=== PATIENT | female | born 1975 | race Caucasian/White ===

== ENCOUNTER 2017-11-13 13:40 | Emergency (ER) | payer MEDICARE, OTHER ==
[2017-11-13 14:09] VITALS: BP 99/67
--- NOTE | 2017-11-20 01:55 | UC ---
CUONG General HPI - HPI Summary HPI Summary: [facility] seeking a bridge rx of ativan--as she has been on one tab qs for 14 years--she recently moved from [facility] and did not reslize she could not get refills in [facility] with an RX written in [place] - History of Current Complaint Chief Complaint: UCMedRefill Stated Complaint: REFILL RX Time Seen by Provider: 11/13/17 13:59 Hx Obtained From: Patient Hx Last Menstrual Period: does not get period due to past radiation tx Onset/Duration: Gradual Onset Onset Severity: Moderate Current Severity: Moderate Pain Intensity: 0 - Allergy/Home Medications Allergies/Adverse Reactions: Allergies Allergy/AdvReac Type Severity Reaction Status Date / Time shellfish derived Allergy Hives Verified 11/13/17 13:57 zinc Allergy Swelling Verified 11/13/17 13:55 Of Face,Lips,& Throat aspirin AdvReac Vomiting Verified 11/13/17 13:57 fentanyl AdvReac See Comment Verified 11/13/17 13:56 Home Medications: Home Medications Cyclobenzaprine TAB* [Flexeril 10 MG TAB*] 10 mg PO DAILY PRN 11/13/17 [History Confirmed 11/13/17] LORazepam [Ativan 1 MG TAB] 1 mg PO DAILY 11/13/17 [History Confirmed 11/13/17] Propranolol TAB* [Inderal TAB*] 10 mg PO DAILY PRN 11/13/17 [History Confirmed 11/13/17] PMH/Surg Hx/FS Hx/Imm Hx Previously Healthy: No Psychological History: Anxiety, Other Other Psychological History: pnea Cancer History: Other Other Cancer History: brain - Surgical History Surgical History: Yes Surgery Procedure, Year, and Place: brainstem tumor removal 2003 - Family History Known Family History: Positive: None - Social History Occupation: Disabled Lives: Alone Alcohol Use: None Substance Use Type: None Smoking Status (MU): Light Every Day Tobacco Smoker Amount Used/How Often: 3 cloves/ day Review of Systems Constitutional: Negative Skin: Negative Eyes: Negative ENT: Negative Respiratory: Negative Cardiovascular: Negative Gastrointestinal: Negative Genitourinary: Negative Motor: Negative Neurovascular: Negative Musculoskeletal: Negative Neurological: Negative Psychological: Negative Is Patient Immunocompromised?: No All Other Systems Reviewed And Are Negative: Yes Physical Exam Triage Information Reviewed: Yes Appearance: No Pain Distress, Ill-Appearing - chronic illness, Thin Vital Signs: Initial Vital Signs Temp 98.1 F 11/13/17 14:00 Pulse 94 11/13/17 14:00 Resp 16 11/13/17 14:00 BP 99/67 11/13/17 14:00 Pulse Ox 98 11/13/17 14:00 Vital Signs Reviewed: Yes Eye Exam: Normal Eyes: Positive: Conjunctiva Clear ENT Exam: Normal ENT: Positive: Normal ENT inspection, Hearing grossly normal, Pharynx normal. Negative: Trismus, Muffled voice, Hoarse voice Dental Exam: Normal Neck exam: Normal Neck: Positive: Supple, Nontender Respiratory Exam: Normal Respiratory: Positive: Chest non-tender, Lungs clear, Normal breath sounds, No respiratory distress, No accessory muscle use Cardiovascular Exam: Normal Cardiovascular: Positive: RRR, No Murmur, Pulses Normal, Brisk Capillary Refill Musculoskeletal Exam: Normal Musculoskeletal: Positive: Strength Intact, ROM Intact, No Edema Neurological Exam: Normal Neurological: Positive: Alert, Muscle Tone Normal Psychological Exam: Normal Skin Exam: Normal Course/Dx - Course Course Of Treatment: bridge script written referral and support information provided - Differential Dx - Multi-Symptom Provider Diagnoses: Ativan bridge refill, Discharge - Sign-Out/Discharge Documenting (check all that apply): Patient Departure - Discharge Plan Condition: Stable Disposition: HOME Prescriptions: LORazepam TAB(*) [Ativan 0.5 MG TAB (*)] 0.5 mg PO BEDTIME #14 tab MDD 1 Referrals: [facility] [Outside] - 2 Days Additional Instructions: "We will meet you where you are..." REACH [employer] for a CANNABIS PROVIDER - Billing Disposition and Condition Condition: STABLE Disposition: Home
== END 2017-11-13 14:45 | disposition home or self-care (01) ==
LOC: UCEAST 13:40
DX: F41.9 Anxiety disorder, unspecified (principal); Z85.841 Personal history of malignant neoplasm of brain; Z88.6 Allergy status to analgesic agent; Z88.5 Allergy status to narcotic agent; Z91.013 Allergy to seafood; F17.290 Nicotine dependence, other tobacco product, uncomplicated
CPT/HCPCS: 99202; G0463

== ENCOUNTER 2018-01-28 17:17 | Observation (INO) | payer MEDICARE, OTHER ==
[2018-01-28 17:47] LABS: ABS Basophils 0.1 10^3/ul (0-0.2); ABS Eosinophils 0.2 10^3/ul (0-0.6); ABS Lymphocytes 2.4 10^3/ul (1.0-4.8); ABS Monocytes 0.5 10^3/ul (0-0.8); ABS Neutrophils 4.4 10^3/ul (1.5-7.7); ABS Nucleated RBC 0 10^3/ul; Eosinophil % 2.7 % (0-6); Hematocrit 39 % (35-47); Hemoglobin 13.4 g/dl (12.0-16.0); Lymphocyte % 31.7 % (25-47); Mean Corpuscular HGB Conc 34 g/dl (31-36); Mean Corpuscular Hemoglobin 31 pg (27-31); Mean Corpuscular Volume 92 fL (80-97); Mean Platelet Volume 6.6 um3 (7.4-10.4); Nucleated Red Blood Cells % 0; Platelet Count 227 10^3/ul (150-450); Red Blood Count 4.28 10^6/ul (4.00-5.40); Red Cell Distribution Width 13 % (10.5-15); White Blood Count 7.6 10^3/ul (3.5-10.8)
--- NOTE | 2018-01-28 17:52 | ED ---
Neurological HPI - HPI Summary HPI Summary: This patient is a 42 year old F presenting to [facility] accompanied by her neighbors with a chief complaint of FND since about 1700. Pt denies PMHx anxiety or panic disorder, and denies anxiety now. Pt went to her neighbors and asked to be brought to the ED; she was unable to ambulate to their car on her own. She endorses aphasia, heavy shaking, left-sided hemiparesis and numbness. Her neighbors endorse that her baseline is normal and functional regarding both motor and sensory abilities, except for occasional ambulation with a cane. PMHx hypotension, denies PMHx DM, CVA. Pt endorses smoking cigarettes and marijuana. Code gomez called 1730. PMHx brainstem tumor medulloblastoma removed in 2003. - History of Current Complaint Chief Complaint: EDAltMentalStatus Stated Complaint: WEAKNESS Time Seen by Provider: 01/28/18 17:33 Hx Obtained From: Patient Hx Last Menstrual Period: does not get period due to past radiation tx Onset/Duration: Sudden Onset, Started minutes ago, Still Present Timing: Constant Onset Severity: Moderate Current Severity: Moderate Neurological Deficit Location: Generalized - aphasia, LUE - motor weakness Pain Intensity: 0 Pain Scale Used: 0-10 Numeric Character: Motor Weakness, Impaired Speech Aggravating: Unknown Alleviating: Nothing Associated Signs and Symptoms: Positive: Unsteady Gait, Weakness, Impaired Speech, Trauma: Remote - medulloblastoma removal in 2003. Negative: Fever, Anxiety - Allergy/Home Medications Allergies/Adverse Reactions: Allergies Allergy/AdvReac Type Severity Reaction Status Date / Time shellfish derived Allergy Hives Verified 11/13/17 13:57 zinc Allergy Swelling Verified 11/13/17 13:55 Of Face,Lips,& Throat aspirin AdvReac Vomiting Verified 11/13/17 13:57 fentanyl AdvReac See Comment Verified 11/13/17 13:56 PMH/Surg Hx/FS Hx/Imm Hx Endocrine/Hematology History: Denies: Hx Diabetes, Hx Sickle Cell Disease Cardiovascular History: Reports: Hx Hypotension Respiratory History: Denies: Hx Lung Cancer GI History: Denies: Hx Ileostomy History: Denies: Hx Dialysis Sensory History: Reports: Hx Contacts or Glasses Denies: Hx Deafness Opthamlomology History: Reports: Hx Contacts or Glasses EENT History: Denies: Hx Deafness Neurological History: Denies: Hx CVA - Cancer History Cancer Type, Location and Year: brainstem tumor; 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 - Surgical History Surgery Procedure, Year, and Place: brainstem tumor removal 2003 Infectious Disease History: No Infectious Disease History: Reports: Hx [place] Denies: Traveled Outside the [place] in Last 30 Days - Family History Known Family History: Negative: Blood Disorder - Social History Lives: Alone Alcohol Use: None Substance Use Type: Reports: None Smoking Status (MU): Light Every Day Tobacco Smoker Amount Used/How Often: 3 cloves/ day Review of Systems Positive: Other - Heavily shaking. Negative: Fever Positive: no symptoms reported Positive: Decreased ROM - L arm Positive: Weakness - L arm, Numbness - L arm, Slurred Speech - aphasia All Other Systems Reviewed And Are Negative: Yes Physical Exam - Summary Physical Exam Summary: Appearance: Well appearing, no pain distress Skin: warm, dry, reflects adequate perfusion Head/face: normal Eyes: EOMI, JESSICA ENT: normal Neck: supple, non-tender Respiratory: CTA, breath sounds present Cardiovascular: RRR, pulses symmetrical Abdomen: non-tender, soft Bowel: present Musculoskeletal: normal, strength/ROM intact Neuro:, A&Ox3, NIH = 3: effort against gravity left arm, some aphasia Triage Information Reviewed: Yes Vital Signs On Initial Exam: Initial Vitals Temp Pulse Resp BP Pulse Ox 97.9 F 102 20 117/75 100 01/28/18 17:21 01/28/18 17:21 01/28/18 17:21 01/28/18 17:21 01/28/18 17:21 Vital Signs Reviewed: Yes - Lucila Coma Scale Best Eye Response: 4 - Spontaneous Best Motor Response: 6 - Obeys Commands Best Verbal Response: 5 - Oriented Coma Scale Total: 15 Diagnostics - Vital Signs Vital Signs Temp Pulse Resp BP Pulse Ox 01/28/18 17:21 97.9 F 102 20 117/75 100 - Laboratory Result Diagrams: 01/28/18 17:40 01/28/18 17:40 Lab Statement: Any lab studies that have been ordered have been reviewed, and results considered in the medical decision making process. - Radiology CXR Xray Interpretation: No Acute Changes Radiology Interpretation Completed By: ED Physician - LAITH. Pending official imaging report. - CT Brain CT Interpretation Completed By: Radiologist - Postsurgical change of previous occipital craniotomy. Postsurgical defect in the cerebellar vermis which communicates with the fourth ventricle. Mild volume loss at the cerebellum. No evidence for intracranial hemorrhage or CT findings to indicate acute or subacute ischemic stroke. No acute intracranial process evident. Results discussed with Dr. Riley 01/28/2018 5:47 PM EDT CTA head CT Interpretation: No Acute Changes CT Interpretation Completed By: Radiologist - 1. No evidence of hemodynamically significant stenosis. 2. Left posterior thyroid enhancement is nonspecific, possibly artifactual. Clinical correlation recommended. 3. No evidence of hemodynamically significant stenosis. Dr. Riley has reviewed this report. - EKG 1742 Cardiac Rate: NL - 82 EKG Rhythm: Sinus Rhythm ST Segment: Normal Ectopy: None EKG Interpretation: No acute changes. NIH Scale - NIH Scale Level of Consciousness: Alert/Keenly Responsive Ask Patient the Month and His/Her Age: Both Correct Ask Pt to Open/Close Eyes and Er Registrar/Release Non-Paretic Hand: Both Correctly Best Gaze (Only Horizontal Eye Movement): Normal Visual Field Testing: No Visual Loss Facial Paresis-Pt to Smile & Close Eyes or Grimace Symmetry: Normal/Symmetrical Motor Function - Right Arm: No Drift-Holds 10 Seconds Motor Function - Left Arm: Effort Against Martin Motor Function - Right Leg: No Drift-Holds 10 Seconds Motor Function - Left Leg: No Drift-Holds 10 Seconds Limb Ataxia-Must be out of Proportion to Weakness Present: Absent Sensory (Use Pinprick to Test Arms/Legs/Trunk/Face): Normal Best Language (Describe Picture, Name Items): Some Loss Dysarthria (Read Several Words): Normal Extinction and Inattention: No Abnormality Total Score: 3 Re-Evaluation - Re-Evaluation First Eval Re-Evaluation Time: 19:38 Change: Improved Comment: Pt feels much better, and if given the option to stay for observation or to go home she would prefer to go home. Course/Dx - Course Course Of Treatment: Code Gomez called 1730. A 42-year-old F presents to the ED with a CC of FND since at least 1700. (+) aphasia, motor weakness L, numbness L , shaking. (-) anxiety. PMHx medulloblastoma/SHx its removal from her brainstem , and PMHx hypotension. Denies PMHx CVA, DM, anxiety, panic disorder. A CXR was (-). An EKG reveals NSR at 82 BPM with no acute changes. In the ED course, pt was given contrast and nl saline. A CT brain revealed postsurgical change of previous occipital craniotomy. Postsurgical defect in the cerebellar vermis which communicates with the fourth ventricle. Mild volume loss at the cerebellum. No evidence for intracranial hemorrhage or CT findings to indicate acute or subacute ischemic stroke. No acute intracranial process evident. Results discussed with Dr. Riley 01/28/2018 5:47 PM EDT. A CTA head reveals 1. No evidence of hemodynamically significant stenosis. 2. Left posterior thyroid enhancement is nonspecific, possibly artifactual. Clinical correlation recommended. 3. No evidence of hemodynamically significant stenosis. - Differential Dx Differential Diagnoses Neuro: Positive: Cerebrovascular Accident, Intracranial Bleed, Metabolic Abnormality, Transient Ischemic Attack - Diagnoses Provider Diagnoses: CVA (cerebral vascular accident) During the Visit The Following Alert/Code Occurred: Code Gomez - 1730 - Physician Notifications Discussed Care Of Patient With: Eliecer Rivera Time Discussed With Above Provider: 17:52 Instructed by Provider To: Other - Pt is not a TPA canditate because of brain tumor resection. Recommends CTA. - Critical Care Time Critical Care Time: 75-104 min - 30 Discharge - Sign-Out/Discharge Documenting (check all that apply): Patient Departure - admit - Discharge Plan Condition: Fair Disposition: ADMITTED TO [facility] - Billing Disposition and Condition Condition: FAIR Disposition: Admitted to [facility] - Attestation Statements Document Initiated by Savannahibe: Yes Documenting Scribe: Gary Puente Provider For Whom Scribe is Documenting (Include Credential): Dr. Isak Riley MD Scribe Attestation: Gary Rose scribed for Dr. Isak Riley MD on 01/28/18 at 2131. Scribe Documentation Reviewed: Yes Provider Attestation: The documentation as recorded by the Gary marshall accurately reflects the service I personally performed and the decisions made by me, Dr. Isak Riley MD Consult Consult: 1958 Dr. Smith: Accepts admission.
--- NOTE | 2018-01-28 17:52 | RAD ---
Indication: History of medulloblastoma in approximate 2003. LEFT arm weakness and slurred speech. Code kern. Comparison: No relevant prior exams available on the [facility] for comparison. Technique: Noncontrast CT vertex of skull through foramen magnum. Report: Postsurgical change of previous occipital craniotomy. Postsurgical defect in the cerebellar vermis which communicates with the fourth ventricle. Mild volume loss at the cerebellum. Negative for kern matter white matter obscuration, intra or extra-axial hemorrhage, or mass effect. Unremarkable cerebral sulci and ventricles. Patent basal cisterns. Unremarkable orbital contents. No calvarial fracture or suspicious focal osseous lesion evident. Unremarkable scalp. Opacification on the LEFT sphenoid sinus. The remaining visualized paranasal sinuses and mastoid air spaces are clear. IMPRESSION: #. Postsurgical change of previous occipital craniotomy. Postsurgical defect in the cerebellar vermis which communicates with the fourth ventricle. Mild volume loss at the cerebellum. #. No evidence for intracranial hemorrhage or CT findings to indicate acute or subacute ischemic stroke. No acute intracranial process evident. #. Results discussed with Dr. Riley 01/28/2018 5:47 PM EDT
[2018-01-28 18:01] LABS: INR 0.94 (0.77-1.02)
[2018-01-28 18:05] LABS: EGFR Non-African American 88.4 (>60)
[2018-01-28] MEDS ORDERED: Iohexol 350* (CONTRAST) 500 ML MDV IV ONE (18:11)
--- NOTE | 2018-01-28 19:53 | RAD ---
EXAM: CT Angiography Head With Intravenous Contrast CLINICAL HISTORY: 42 years old, female; Signs and symptoms; Drowsiness or somnolence; Prior surgery; Surgery date: 6+ months; Additional info: CVA TECHNIQUE: Axial computed tomographic angiography images of the head with intravenous contrast using CT angiography protocol. All CT scans at this facility use at least one of these dose optimization techniques: automated exposure control; mA and/or kV adjustment per patient size (includes targeted exams where dose is matched to clinical indication); or iterative reconstruction. 3D and MIP reconstructed images were created and reviewed. Coronal and sagittal reformatted images were created and reviewed. CONTRAST: 80 mL of OMNI 350 administered intravenously. COMPARISON: No relevant prior studies available. FINDINGS: Artifacts: Left posterior thyroid enhancement is nonspecific, possibly artifactual. Clinical correlation recommended. Right internal carotid artery: No acute findings. Intracranial segment is patent with no significant stenosis. No aneurysm. Right anterior cerebral artery: Unremarkable. No occlusion or significant stenosis. No aneurysm. Right middle cerebral artery: Unremarkable. No occlusion or significant stenosis. No aneurysm. Right posterior cerebral artery: Unremarkable. No occlusion or significant stenosis. No aneurysm. Right vertebral artery: Unremarkable as visualized. Left internal carotid artery: No acute findings. Intracranial segment is patent with no significant stenosis. No aneurysm. Left anterior cerebral artery: Unremarkable. No occlusion or significant stenosis. No aneurysm. Left middle cerebral artery: Unremarkable. No occlusion or significant stenosis. No aneurysm. Left posterior cerebral artery: Unremarkable. No occlusion or significant stenosis. No aneurysm. Left vertebral artery: Unremarkable as visualized. Basilar artery: Unremarkable. No occlusion or significant stenosis. No aneurysm. Bones/joints: Suboccipital cranial metallic plates with left cerebellar resection/postsurgical change. IMPRESSION: 1. No evidence of hemodynamically significant stenosis. 2. Left posterior thyroid enhancement is nonspecific, possibly artifactual. Clinical correlation recommended. EXAM: CT Angiography Neck With Intravenous Contrast CLINICAL HISTORY: 42 years old, female; Signs and symptoms; Drowsiness or somnolence; Prior surgery; Surgery date: 6+ months; Additional info: CVA TECHNIQUE: Axial computed tomographic angiography images of the neck with intravenous contrast using CT angiography protocol. All CT scans at this facility use at least one of these dose optimization techniques: automated exposure control; mA and/or kV adjustment per patient size (includes targeted exams where dose is matched to clinical indication); or iterative reconstruction. 3D and MIP reconstructed images were created and reviewed. Coronal and sagittal reformatted images were created and reviewed. CONTRAST: 80 mL of OMNI 350 administered intravenously. 80 mL of OMNI 350 administered intravenously. COMPARISON: No relevant prior studies available. FINDINGS: VASCULATURE: Right common carotid artery: Unremarkable. No significant stenosis. No dissection or occlusion. Right internal carotid artery: Right internal carotid artery tortuosity. Extracranial segment is patent with no significant stenosis. No dissection or occlusion. Right external carotid artery: Unremarkable. No occlusion. Right vertebral artery: Unremarkable. No significant stenosis. No dissection or occlusion. Left common carotid artery: Unremarkable. No significant stenosis. No dissection or occlusion. Left internal carotid artery: Unremarkable. Extracranial segment is patent with no significant stenosis. No dissection or occlusion. Left external carotid artery: Unremarkable. No occlusion. Left vertebral artery: Unremarkable. No significant stenosis. No dissection or occlusion. NECK: Bones/joints: No acute fracture. No dislocation. Soft tissues: Unremarkable as visualized. No mass. CAROTID STENOSIS REFERENCE USING NASCET CRITERIA: % ICA stenosis = (1 - narrowest ICA diameter/diameter of distal cervical ICA) x 100. Mild - <50% stenosis. Moderate - 50-69% stenosis. Severe - 70-94% stenosis. Near occlusion - 95-99% stenosis. Occluded - 100% stenosis. IMPRESSION: No evidence of hemodynamically significant stenosis.
[2018-01-28] MEDS ORDERED: Ondansetron INJ* 2 MG/ML VIAL IV PRN (20:50)
[2018-01-28] MEDS ORDERED: Acetaminophen TAB* 325 MG PO PRN (20:50)
[2018-01-28] MEDS: NS 0.9% 1000 ML* 1,000 ML IV SCH (21:36)
--- NOTE | 2018-01-29 03:10 | HP ---
CC: Dr. Milligan * HISTORY AND PHYSICAL: DATE OF ADMISSION: 01/28/18 PRIMARY CARE PROVIDER: None. CONSULTING NEUROLOGIST: Dr. Milligan. MY ATTENDING PHYSICIAN WHILE IN HOSPITAL: Alex Smith MD * (report dictated by Matheus Brice NP) CHIEF COMPLAINT: 1. Difficulty with speech. 2. Left-sided weakness and numbness, now resolved. HISTORY OF PRESENT ILLNESS: Mrs. Hanks is a 42-year-old female patient, who has a history of a medulloblastoma, history of nonepileptic seizures, history of complex migraines, and ocular migraines and amnesia in the past. She is coming into the ED today stating that around 4 o'clock today she felt sick, she had discomfort in her head, it did not feel like a typical migraine. She laid down, took 2 aspirin. When she woke up she started having some numbness in her right hand and then it progressed to numbness and tingling into the left arm with some weakness and trouble with her speech. She walked over her neighbor's house. There was concern and they called 911 after she was able to tell them to do that. She to her knowledge denied any trouble with the right lower extremity and right upper extremity with the exception of numbness and tingling to the right hand, but that has now resolved. There was no chest pain or shortness of breath. No abdominal pain. She denied having any changes in her vision. 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 She denies having any again in vision. No facial drooping was reported. She denied any slurring of the words, but there is definitely difficulty with words and trouble with her left upper and left lower extremity. She states the symptoms have now resolved and lasted approximately 60 minutes. She came into the ER. Franki Klein was called. Because of the possibility of seizure, stroke, recurrence of the tumor, we were asked to evaluate for admission. PAST MEDICAL HISTORY: Significant for: 1. Medulloblastoma. 2. Nonepileptic seizures. 3. History of ocular migraines. 4. History of migraines. 5. Amnesia. PAST SURGICAL HISTORY: 1. She had a craniotomy. 2. She has had 4 eye surgeries for strabismus repair. HOME MEDICATIONS: According to her and I specifically asked her if she was on any antiepileptics, she says "no." 1. She is on propranolol 10 mg p.o. daily as needed. 2. Flexeril 10 mg p.o. daily as needed. ALLERGIES TO MEDICATIONS: Include SULFATE, ZINC. She cannot take large aspirin. She states she can take a baby aspirin and she is allergic to FENTANYL. FAMILY HISTORY: Both of her parents are healthy. Specifically, she denied the parents having any history of heart attacks, strokes, cancers or diabetes. SOCIAL HISTORY: She does smoke 5 Colts a day. She does not drink alcohol. Denied recreational drug abuse. Surrogate decision maker she wishes to appoint her ex- , but before appointing this she would like to touch base with him. REVIEW OF SYSTEMS: There is no documented fevers. She is denying having any significant weight change. There is no double vision. She denies having any ear discharge. There was no rhinorrhea, no sore throat. No thyroid enlargement. She denies having any chest pain. There is no orthopnea. There is no nocturnal dyspnea. There is no abdominal pain. No nausea, no vomiting. No dysuria or frequency. No seizure. No loss of conscience. No pruritus and no skin ulcerations. Review of 14 systems was completed, all others negative. PHYSICAL EXAMINATION GENERAL: At this time, Mrs. Hanks is a 42-year-old female patient. She is sitting in the ED stretcher. She does not appear to be in any acute distress. VITAL SIGNS: Blood pressure 117/75 with a pulse of 102, respirations 20, his O2 saturation is 100%, temperature 97.9. HEENT: Head: Atraumatic and normocephalic. Eyes: EOMs are intact. Pupils reactive to light to the left eye. Sclerae anicteric and not pale. Throat: Oral mucosa appears to be moist. No oropharyngeal erythema. NECK: Supple. LUNGS: Clear to auscultation bilaterally. There are no wheezes, rales, or rhonchi. HEART: Sounds S1, S2. Regular rate and rhythm. There are no murmurs, rubs, or gallops. ABDOMEN: Soft, flat, nontender. Bowel sounds present. EXTREMITIES: Pulses were 2+ throughout. She is able to move all 4 extremities with 5/5 strength. No peripheral edema. NEUROLOGICAL: She is awake. She is alert. She is oriented x3. Her tongue is midline. Executive Chef are equal. Rlaewz-ha-whbt is intact bilaterally. Futz-tt-jofe was intact bilaterally. She had 5/5 strength. Cranial nerves were intact, but again she has strabismus to the right eye. It is covered. SKIN: Grossly intact. LABORATORY DATA/DIAGNOSTIC STUDIES: WBC of 7.6, RBC 4.2, hemoglobin of 13.4, hematocrit of 39, platelet count of 227, INR of 0.94, PTT of 29.9. Sodium of 139, potassium is 3.7, chloride of 109, bicarb 25, BUN 14, creatinine 0.72, glucose 94, calcium 9.2. Total bili 0.3, AST 11, ALT 11, alk phos 58, albumin of 4.1. Brain CT shows postsurgical change of previous occipital craniotomy, postsurgical defect in the cerebellar vermis, which communicates with postsurgical mild volume loss at the cerebellum. No evidence for intracranial hemorrhage or CT findings to indicate acute or subacute ischemic stroke. No acute intracranial process evident. Head CTA: No evidence of hemodynamically significant stenosis of the head or the neck, left posterior possible artifactual. Chest x-ray shows no acute infiltrates or pleural effusions. Normal cardiac silhouette. Old medical records are reviewed. ASSESSMENT AND PLAN: Mrs. Hanks is a 42-year-old female patient coming into the ED today with complaints of neurological deficits. Code concha was called. We were asked to evaluate for admission. She will be admitted under observatory status for: 1. Question of transient ischemic attack. Again, at this point she is right- handed and she is having weakness and numbness and tingling to the left side with speech difficulty, which does not correlate. However, she does have a history of brain tumor, possible seizure here tonight too, although there is no report of convulsions. My plan at this point is to get in touch with Dr. Milligan. He will evaluate the patient tomorrow. Get an MRI with and without contrast. We will need to get records from [facility] for her last neurologist and her last GP. We will try to get those records and the patient is going to get his contact information. We will place her on telemetry. I am holding off on aspirin. At this point, she took some today. I will get lipid panel, A1c, place her on telemetry, MRI, EEG and we will get a neurology input. 2. History of nonepileptic psychogenic seizures. We will order seizure prophylaxis. Continue with supportive care and check EEG in the morning. 3. History of medulloblastoma. She will need to establish care with Neurology and Neurosurgery to follow this. At this point, we will get an MRI tomorrow. 4. History of migraines today. Could represent a complex migraine. We will continue with her current medical regimen. 4. Deep venous thrombosis prophylaxis. Put her on SCDs. 5. Code status. Full code. 10. Fluids, electrolytes, and nutrition. She can have a regular diet. TIME SPENT: Time spent on admission 60 minutes, greater than half of the time spent [id number]-kv-[id number] with the patient obtaining my history and physical, other half of the time spent going over the plan of care with the patient and implementing the plan of care. I did discuss the plan of care with my attending, Dr. Smith; he is in agreement. MATHEUS BRICE, KOKO [id number]/CPS #: [id number] KEVIN
[2018-01-29 06:20] LABS: ABS Basophils 0.1 10^3/ul (0-0.2); ABS Eosinophils 0.3 10^3/ul (0-0.6); ABS Lymphocytes 2.5 10^3/ul (1.0-4.8); ABS Monocytes 0.7 10^3/ul (0-0.8); ABS Neutrophils 3.2 10^3/ul (1.5-7.7); ABS Nucleated RBC 0 10^3/ul; Eosinophil % 4.6 % (0-6); Hematocrit 37 % (35-47); Hemoglobin 12.7 g/dl (12.0-16.0); Lymphocyte % 37.1 % (25-47); Mean Corpuscular HGB Conc 34 g/dl (31-36); Mean Corpuscular Hemoglobin 32 pg (27-31); Mean Corpuscular Volume 92 fL (80-97); Nucleated Red Blood Cells % 0.1; Platelet Count 230 10^3/ul (150-450); Red Blood Count 4.04 10^6/ul (4.00-5.40); Red Cell Distribution Width 13 % (10.5-15); White Blood Count 6.8 10^3/ul (3.5-10.8)
[2018-01-29 06:40] LABS: EGFR Non-African American 85.7 (>60)
--- NOTE | 2018-01-29 07:47 | RAD ---
INDICATION: CVA. COMPARISON: There are no relevant prior studies available for comparison. TECHNIQUE: A portable view of the chest was obtained. FINDINGS: Cardiac and mediastinal contours appear to be within normal limits. The lungs are clear. No pleural effusion is seen. IMPRESSION: NO EVIDENCE FOR ACUTE DISEASE. R1
[2018-01-29 08:47] LABS: Urine Appearance Cloudy; Urine Blood Negative (Negative); Urine Color Yellow; Urine Ketones Negative (Negative); Urine Protein Negative (Negative); Urine Specific Gravity 1.016 (1.010-1.030); Urine Urobilinogen Negative (Negative)
[2018-01-29 08:49] LABS: Urine Red Blood Cell Absent (Absent); Urine White Blood Cell Absent (Absent)
[2018-01-29] MEDS ORDERED: NS 0.9% 500 ML* 500 ML IV ONE (10:50)
[2018-01-29] MEDS: NS 0.9% 1000 ML* 1,000 ML IV SCH (11:51)
[2018-01-29 16:52] VITALS: BP 101/63
--- NOTE | 2018-01-29 20:56 | CONS ---
NEUROLOGY CONSULTATION: DATE OF CONSULT: 01/29/18 LOCATION: She is an inpatient in room 444. REFERRING PROVIDER: Matheus Brice NP CHIEF COMPLAINT: Numbness and slurred speech. HISTORY OF PRESENT ILLNESS: Martha Hanks is a 42-year-old right-handed woman , who presented to the emergency room last evening when her neighbors called an ambulance. She apparently went to their house or apartment and had slurred speech. She reports that about 3:30 in the afternoon she started to get some numbness of her right hand. Around the same time or soon thereafter, she started to get numbness of the left arm. She was able to ambulate, but then went to her neighbors and they noted slurred speech. She was brought into the emergency room by ambulance. Her symptoms resolved within a few hours. Apparently, a code kern was called, but I do not see a telestroke report in the records yet. She was admitted. She says that she has had these episodes going back over a decade. She had a medulloblastoma diagnosed in 2003 and had surgery, radiation, and chemotherapy. Since then, she has had these episodes where she will get numbness in the right arm and then the left and then sometimes slurred speech. She says that it happens about once per month on average. She was evaluated by her neurologist and neurosurgeons in [facility] where she lived. She believes that because she gets stressed and then muscles in her neck tighten. She says that she has been under increased stress because she is recently from her and moved back to [facility]. She is from [place] originally and her parents are still alive in [place]. She also said she had a bad nightmare the night before, which had stressed her. She says she has a history of psychogenic nonepileptic spells diagnosed with [facility]. She says that these episodes are different than those, but again these have been recurring for over a decade. PAST MEDICAL HISTORY: Mainly notable for the medulloblastoma. She has a history of migraines. MEDICATIONS: Her only medications at admission were: 1. Acetaminophen as needed. 2. Propranolol 10 mg p.o. b.i.d. 3. She has cyclobenzaprine 10 mg p.o. as needed for neck pain or headaches. ALLERGIES: She is allergic to SULFA DRUGS, FENTANYL. SOCIAL HISTORY: Notable for smoking as mentioned, recently from her , moved back to [place] to be near her family. REVIEW OF SYSTEMS: Negative for faints or falls. She has always been of low weight she says, but it has not changed recently. No recent fevers or chills. No episodes of loss of consciousness. No change in her vision, which is chronically impaired. No history of diabetes or hypertension and she is prone to low blood pressure. She does smoke 5 cigarettes per day. PHYSICAL EXAM: She is a very thin, frail-appearing woman, who otherwise is well hydrated. Temperature is 98.2 orally, blood pressure is running 80 to 97 systolic over 50 to 60 diastolic. Heart rates in the 70s and regular. Respiratory rate is 16 and oxygen saturation is 100% on room air. Heart is in a regular rhythm without murmurs. There are no cervical bruits. Oral mucosa is moist and atraumatic. Neurological Exam: Pupils react pretty equally to light from about 3 to 2 mm. There is very limited range of motion of the left eye with diminished upward gaze, somewhat diminished downward gaze, full horizontal gaze. The right eye is divergent with limited upgaze, medial gaze and downgaze. Optic disc in the left eye is quite pale. Facial musculature is symmetric. Facial sensation to light touch is symmetric. Palate and tongue appear normal, tongue protrudes in the midline and palate rises symmetrically. There is no dysarthria. Motor exam reveals normal muscle strength in the limbs proximally and distally. There is no drift of any limb. She has very little muscle bulk. Sensory exam to light touch is intact in the upper and lower extremities. Sensory exam to pin in the upper and lower extremities is intact. Reflexes are very brisk and symmetric. Plantar responses are flexor bilaterally. Uzdllr-dl-glbk maneuver is a little bit clumsy bilaterally. It seems limited by her vision as well. Finger taps are little bit slow and clumsy in both hands, little worse in the left. She is alert and oriented to person, place, and time. Memory is intact and language is fluent. DIAGNOSTIC STUDIES/LAB DATA: Includes a normal CBC and normal chemistry profile. Cholesterol is 188, LDL 128. Urinalysis is notable for positive nitrites and is otherwise unremarkable. INR and PTT are normal. CT of the brain is reviewed and reveals postoperative changes in the posterior fossa. CT angiogram of the brain is interpreted as normal. 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 Her symptoms were bilateral and yet there was no loss of consciousness. 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 I do not think she needs further neuroimaging or evaluation for a cerebrovascular disease. I think she could be discharged to home without any additional medical therapy. If she has recurrent symptoms in the future, I can see her in my office and get her records from [facility]. [id number]/[facility] #: [id number] MTDD
--- NOTE | 2018-01-30 04:36 | EEG ---
ELECTROENCEPHALOGRAM REPORT: DATE OF STUDY: 01/29/18 LOCATION: She is an inpatient in room 444-02. REFERRING PHYSICIAN: Matheus Brice NP CLINICAL PROBLEM: History of medulloblastoma with surgical resection. 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 She had an episode of right-sided numbness and then left arm numbness and then slurred speech. Only medication is Flexeril p.r.n. REPORT: This 16-channel EEG is remarkable for background rhythms consisting of a well-formed alpha rhythm in the posterior derivations at 9 cycles per second, which is symmetric and suppressed by eye opening. The patient drowses and falls asleep with high-voltage occipital sharp waves, vertex sharp waves, and sleep spindles. The patient sleeps through large portions of the tracing. Activation procedures are not attempted. There are no epileptiform or lateralized discharges. CLINICAL IMPRESSION: Abnormal EEG due to high-voltage occipital rhythms, which were otherwise normal. This is consistent with the patient's occipital surgery and a breach defect. There are no epileptiform features to this recording. [id number]/[facility] #: [id number] [facility] MEDICAL CENTERDwaine
--- NOTE | 2018-01-30 04:52 | DS ---
DISCHARGE SUMMARY: DATE OF ADMISSION: 01/28/18 DATE OF DISCHARGE: 01/29/18 PROVIDER: Miranda Sen NP ATTENDING PHYSICIAN: Dr. Cheryl Mora * (dictated by Miranda Sen NP) PRIMARY CARE PROVIDER: None. PRIMARY DIAGNOSIS: Psychogenic seizures. SECONDARY DIAGNOSES: 1. Medulloblastoma. 2. Nonepileptic seizures. 3. History of ocular migraines. 4. History of migraines. 5. Amnesia. 6. Hypotension. The patient did have some hypotension during this hospitalization. Her blood pressure was 80/60. She was given normal saline 500 mL bolus, which improved her blood pressure to 97/60. During her hypotension, she denied any dizziness, weakness or any changes from her baseline. She reports that her blood pressure normally runs low in the 80s or 90s. It is a normal blood pressure for her. STUDIES COMPLETED WHILE IN THE HOSPITAL: 1. The patient has a CT of the brain on 01/28/18. Radiologist's Impression: Postsurgical changes of previous occipital craniotomy, postsurgical defect in the cerebellar vermis, which communicates with the 4th ventricle, mild volume loss at the cerebellum. No evidence of intracranial hemorrhage or CT findings to indicate acute or subacute ischemic stroke. No acute intracranial process is evident. 2. She had a chest x-ray on 01/28/18. Radiologist's impression: No evidence of acute disease. 3. She had an electrocardiogram on 01/28/18, which showed sinus rhythm at the rate of 82. 4. She had a CTA of the head. Radiologist's impression: No evidence of hemodynamically significant stenosis. DISCHARGE MEDICATIONS: No new medications: Continued home medications: 1. Inderal 10 mg p.o. daily p.r.n. 2. Flexeril 10 mg p.o. daily p.r.n. HISTORY OF PRESENT ILLNESS AND HOSPITAL COURSE: Ms. Hanks is a 42-year- old female with past medical history significant for medulloblastoma, nonepileptic seizures, history of ocular migraines, and amnesia, who presented to the emergency room today. She felt sick. She had discomfort in her head. She did not feel like her typical migraine. She laid down. She said she took 2 aspirin and when she woke, she was still having some numbness in her right hand, which progressed to numbness and tingling into her left arm with some weakness and trouble with her speech. She walked to her neighbor's house and they were concerned, so they called 911 after she was able to tell them to do that. She, to her knowledge, denies any trouble with her right lower extremity and right upper extremity with the exception of numbness and tingling to the right hand; but on evaluation in the emergency room, that had resolved. The patient denied any chest pain or shortness of breath. Denied any abdominal pain. She denies having any changes in her vision. She does have strabismus of the right eye. 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 She denies facial drooping or slurring of her words, but there was definitely difficulty with words and trouble with her left upper and left lower extremity. She does report that the symptoms are now all resolved and lasted approximately 60 minutes. She was a code kern in the emergency room. The patient reports that she has recently had significant stress in her life. She recently split from her in November and moved here from [place]. She does report that she also has the [employer] company that was transporting her personal belongings to [place], apparently lost her belongings. She also reports that she had some anxiety related to this episode as this is the first time she has been alone when she has had one of these episodes. She does report that she has had similar episodes like this in the past that resolved on their own. While in the emergency room, she was monitored and routine lab work was drawn, which was within normal limits. Because of the possibility of seizure, stroke or recurrence of her tumor, the hospital medicine team was asked to see and evaluate her for admission. During her hospitalization, she was seen in consultation by Neurology, who suspects that her episode was related to a psychogenic seizure and recommended no further workup. They recommended not proceeding with echo with bubble study or MRI with contrast. On the day of discharge, the patient states that she is feeling at her baseline and her normal state of health. She denies any fever or chills. She denies any nausea or vomiting. Denies any chest pain. She denies any dizziness or changes in vision. She denies any seizure or loss of consciousness. She denies any pruritus or skin ulcerations. A review of 14 systems was completed and all others were negative. PHYSICAL EXAMINATION: General: At this time, Ms. Hanks is a 42-year-old female. She appears well sitting on her hospital bed. She does not appear to be in any acute distress. Vital Signs: Temperature was 98.2, heart rate was 76 , respirations 16, O2 saturation was 100% on room air, blood pressure was 97/ 60. HEENT: Head is atraumatic. Eyes: EOMs are intact. Oral mucosa appeared to be moist. Neck: Supple. Lungs: Clear to auscultation bilaterally. No wheezes, rales or rhonchi. Cardiac: S1, S2. Regular rate and rhythm. No murmurs, rubs or gallops. Abdomen: Soft and nontender. Bowel sounds are present x4. Extremities: She is able to move all 4 extremities with 5/5 strength. Pulses are +2 bilaterally to upper and lower extremities. Neurologic : She is awake, alert, and oriented x3. Hand hand polisher are equal. Tongue is midline. Speech is clear. Shoulder shrug is intact. Pnuncl-ji-dxtx is intact. Dowi-ql-fwun is intact. Upper and lower extremities are intact. Sensation is intact to upper and lower extremities. There are no gross neuro focal deficits found. Skin: Intact. At this time, Ms. Hanks is stable for discharge home. DISCHARGE PLAN: Ms. Hanks will be discharged back to home. Activity as tolerated. She should resume a regular diet. 1. Psychogenic seizures. The patient is not on any seizure medication at home. She should continue with supportive care. 2. Migraines. She should continue her current home regimen for treatment of her migraines. FOLLOWUP: She should follow up with her primary care provider in 1 to 2 weeks. She was instructed to return to the emergency room for any chest pain, shortness of breath, any seizures or loss of consciousness, severe headache or any other concerning symptoms. This is a summarization of her hospitalization. For further details, please see the entire medical record. TIME SPENT: Time spent on this discharge was approximately 60 minutes, greater than half that time was spent with the patient discussing discharge plans and instructions. CONDITION ON DISCHARGE: Stable. MIRANDA SEN, KOKO [id number]/[facility] #: [id number] KEVIN
== END 2018-01-29 17:45 | disposition home or self-care (01) ==
LOC: ED 17:17 → MEDTELE 20:46
PROVIDERS: ADMIT Hospitalist; ATTEND Internal Medicine
DX: G40.89 Other seizures (principal); C71.7 Malignant neoplasm of brain stem; R41.3 Other amnesia; I95.9 Hypotension, unspecified; R53.1 Weakness; R20.0 Anesthesia of skin; F17.210 Nicotine dependence, cigarettes, uncomplicated; Z88.2 Allergy status to sulfonamides; Z79.899 Other long term (current) drug therapy; Z88.8 Allergy status to other drugs, medicaments and biological substances; R47.81 Slurred speech
CPT/HCPCS: 36415; 70450; 70496; 70498; 71045; 80048; 80053; 80061; 81003; 81015; 83036; 85025; 85610; 85730; 87077; 87086; 87186; 93005; 95816; 96360; 96361; 99285; G0378; Q9967

== ENCOUNTER 2018-02-25 22:24 | Emergency (ER) | payer MEDICARE ==
[2018-02-26] MEDS ORDERED: Lidocaine 1%* 5 ML VIAL INJ ONE (04:02)
[2018-02-26] MEDS ORDERED: Lidocaine 1%* 5 ML VIAL ONE (04:05)
[2018-02-26] MEDS ORDERED: Sulfamethox/Trimethoprim DS 800/160* TAB PO ONE (04:41)
--- NOTE | 2018-02-26 04:42 | ED ---
Laceration/Wound HPI - HPI Summary HPI Summary: Patient complains of laceration to web of right hand between thumb and second digit. Denies any other pain or injury. Bleeding controlled. - History of Current Complaint Stated Complaint: RT HAND INJURY Time Seen by Provider: 02/26/18 00:35 Hx Obtained From: Patient Hx Last Menstrual Period: does not get period due to past radiation tx Mechanism of Injury: Sharp/Blunt Trauma Onset/Duration: Lasting Hours Aggravating: Movement Alleviating: Nothing Timing: Constant Onset Severity: Moderate Current Severity: Moderate Pain Intensity: 10 Pain Scale Used: 0-10 Numeric Associated Signs & Symptoms: Negative - Allergy/Home Medications Allergies/Adverse Reactions: Allergies Allergy/AdvReac Type Severity Reaction Status Date / Time shellfish derived Allergy Hives Verified 11/13/17 13:57 zinc Allergy Swelling Verified 11/13/17 13:55 Of Face,Lips,& Throat aspirin AdvReac Vomiting Verified 11/13/17 13:57 fentanyl AdvReac See Comment Verified 11/13/17 13:56 PMH/Surg Hx/FS Hx/Imm Hx Endocrine/Hematology History: Reports: Other Endocrine/Hematological Disorders - anemia Denies: Hx Anticoagulant Therapy, Hx Diabetes, Hx Sickle Cell Disease Cardiovascular History: Reports: Hx Hypotension Respiratory History: Denies: Hx Lung Cancer GI History: Denies: Hx Gastroesophageal Reflux Disease, Hx Ileostomy History: Denies: Hx Dialysis Musculoskeletal History: Reports: Other Musculoskeletal History - balance issues d/t brain tumor Sensory History: Reports: Hx Contacts or Glasses, Hx Vision Problem - right eye Denies: Hx Deafness, Hx Hearing Aid Opthamlomology History: Reports: Hx Contacts or Glasses, Hx Vision Problem - right eye Neurological History: Reports: Other Neuro Impairments/Disorders - medulloblastoma Denies: Hx CVA Psychiatric History: Reports: Hx Anxiety - Cancer History Cancer Type, Location and Year: brainstem tumor; 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 - Surgical History Surgery Procedure, Year, and Place: brainstem tumor removal 2003 Hx Anesthesia Reactions: No Infectious Disease History: Yes Infectious Disease History: Reports: Hx Shingles - 2004 Denies: Traveled Outside the [place] in Last 30 Days - Family History Known Family History: Positive: None Negative: Blood Disorder - Social History Alcohol Use: None Substance Use Type: Reports: Marijuana Substance Use Comment - Amount & Last Used: ediables for pain control, 3-4 times /weekly Smoking Status (MU): Light Every Day Tobacco Smoker Amount Used/How Often: 3 cloves/ day Have You Smoked in the Last Year: Yes Review of Systems Constitutional: Negative Eyes: Negative ENT: Negative Cardiovascular: Negative Respiratory: Negative Gastrointestinal: Negative Genitourinary: Negative Musculoskeletal: Negative Skin: Other Neurological: Negative Psychological: Normal All Other Systems Reviewed And Are Negative: Yes Physical Exam - Summary Physical Exam Summary: Patient able to flex and extend right thumb at each individual joint. Able to complete opposition with each of remaining 4 digits. PMS intact on right hand. No crepitus or foreign body palpated. Triage Information Reviewed: Yes Vital Signs On Initial Exam: Initial Vitals Temp Pulse Resp BP Pulse Ox 98.4 F 61 20 116/68 96 02/25/18 22:30 02/25/18 22:30 02/25/18 22:30 02/25/18 22:30 02/25/18 22:30 Vital Signs Reviewed: Yes Appearance: Positive: Well-Appearing Skin: Positive: Warm Head/Face: Positive: Normal Head/Face Inspection Eyes: Positive: Normal Neck: Positive: Supple Respiratory/Lung Sounds: Positive: Clear to Auscultation Cardiovascular: Positive: Normal Abdomen Description: Positive: Nontender Musculoskeletal: Positive: Normal Neurological: Positive: Normal Psychiatric: Positive: Normal AVPU Assessment: Alert - Lucila Coma Scale Best Eye Response: 4 - Spontaneous Best Motor Response: 6 - Obeys Commands Best Verbal Response: 5 - Oriented Coma Scale Total: 15 Diagnostics - Vital Signs Vital Signs Temp Pulse Resp BP Pulse Ox 02/25/18 22:30 98.4 F 61 20 116/68 96 - Laboratory Lab Statement: Any lab studies that have been ordered have been reviewed, and results considered in the medical decision making process. Laceration Repair Course/Dx - Course Course Of Treatment: Patient complains of laceration to web of right hand between thumb and second digit. Denies any other pain or injury. Bleeding controlled. Physical exam:Patient able to flex and extend right thumb at each individual joint. Able to complete opposition with each of remaining 4 digits. PMS intact on right hand. No crepitus or foreign body palpated. No foreign body or fracture noted on x-ray. Wound sutured. Rx for Bactrim. - Clinical Impression Provider Diagnoses: Laceration Discharge - Sign-Out/Discharge Documenting (check all that apply): Patient Departure - Discharge Plan Condition: Stable Disposition: HOME Prescriptions: Sulfamethox/Trimethoprim DS* [Bactrim DS 800/160 TAB*] 1 tab PO BID 10 Days #20 tab Patient Education Materials: Care For Your Stitches (ED), Laceration (ED), Finger Laceration (ED) Referrals: No Primary Care Phys,NOPCP [Primary Care Provider] - Additional Instructions: Sutures out in 10 days. Take antibiotics as directed. May wash with warm running water and soap. Do not submerge underwater. Return to the ED for any new or worsening symptoms including redness, pus, swelling. - Billing Disposition and Condition Condition: STABLE Disposition: Home
[2018-02-26 04:57] VITALS: BP 108/56
[2018-02-26] MEDS ORDERED: Ibuprofen TAB* 600 MG ONE (05:03)
[2018-02-26] MEDS ORDERED: Ibuprofen TAB* 600 MG PO ONE (05:03)
--- NOTE | 2018-02-26 07:48 | RAD ---
Indication: Hand injury. 2 views of the right hand demonstrate no evidence of radiopaque foreign body. Soft tissue swelling is noted between the first and second metacarpal. No fracture is identified. IMPRESSION: No fracture of the right hand is noted. No radiopaque foreign body is noted. R1NF
== END 2018-02-26 04:57 | disposition home or self-care (01) ==
LOC: ED 22:24
DX: S61.011A Laceration without foreign body of right thumb without damage to nail, initial encounter (principal); S61.210A Laceration without foreign body of right index finger without damage to nail, initial encounter; S61.411A Laceration without foreign body of right hand, initial encounter; X58.XXXA Exposure to other specified factors, initial encounter; Y92.9 Unspecified place or not applicable
CPT/HCPCS: 96374; 99282; A9270-GY

== ENCOUNTER 2018-09-09 12:47 | Emergency (ER) | payer MEDICARE ==
--- NOTE | 2018-09-09 14:07 | ED ---
Neck Pain - HPI Summary HPI Summary: Pt is a 43 y/o F presenting to the ED with a chief complaint of neck pain. 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 She is experiencing pain in her neck that feels like pressure on her C-spine. She is s/p surgical resection, and has been tumor free for 15 years. 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 She had a neurologist but they thought everything was fine so she has not had imaging done in a while. She denies fever, chills, N/V, CP, SOB, as well as hx of HTN, DM, HLD, or cardiac issues. Allergies include seafood, high doses of Zinc or ASA, Codeine, and Fentanyl. - History of Current Complaint Chief Complaint: EDNeckComplaint Stated Complaint: HEAD/NECK PAIN PER PT Time Seen by Provider: 09/09/18 13:37 Hx Obtained From: Patient Hx Last Menstrual Period: does not get period due to past radiation tx Onset/Duration Of Injury/Symptoms: Days Mechanism Of Injury: No Known Trauma Timing: Constant, Lasting Days Onset/Duration: Gradual Onset, Started days ago, Still Present Severity Initially: Mild Severity Currently: Moderate Pain Intensity: 5 Pain Scale Used: 0-10 Numeric Location: Discrete At: - C-spine Character: Other: - pressure Aggravating Factors: Nothing Alleviating Factors: Nothing Related History: Other - prior medulloblastoma ~15yrs ago - Allergies/Home Medications Allergies/Adverse Reactions: Allergies Allergy/AdvReac Type Severity Reaction Status Date / Time shellfish derived Allergy Hives Verified 09/09/18 12:54 zinc Allergy Swelling Verified 09/09/18 12:54 Of Face,Lips,& Throat aspirin AdvReac Vomiting Verified 09/09/18 12:54 fentanyl AdvReac See Comment Verified 09/09/18 12:54 PMH/Surg Hx/FS Hx/Imm Hx Previously Healthy: No Endocrine/Hematology History: Reports: Other Endocrine/Hematological Disorders - anemia Denies: Hx Anticoagulant Therapy, Hx Diabetes, Hx Sickle Cell Disease Cardiovascular History: Reports: Hx Hypotension Denies: Hx Hypertension, Hx Pacemaker/ICD Respiratory History: Denies: Hx Asthma, Hx Lung Cancer GI History: Denies: Hx Gastroesophageal Reflux Disease, Hx Ileostomy History: Denies: Hx Dialysis Musculoskeletal History: Reports: Other Musculoskeletal History - balance issues d/t brain tumor Sensory History: Reports: Hx Contacts or Glasses, Hx Vision Problem - right eye Denies: Hx Deafness, Hx Hearing Aid Opthamlomology History: Reports: Hx Contacts or Glasses, Hx Vision Problem - right eye Neurological History: Reports: Other Neuro Impairments/Disorders - medulloblastoma Denies: Hx CVA Psychiatric History: Reports: Hx Anxiety, Hx Panic Disorder - PANIC ATTACKS - Cancer History Cancer Type, Location and Year: brainstem tumor; 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 (DR. CARBALLO LOOKED AT PRIOR CT IMAGES 08/04 1350 HRS. OKAY TO SCAN SKULL SUTURES ONLY. VERBAL KDT 08/04/18 1350HRS) ,. TEETH REMOVED,. BONE GRAFTS AND IMPLANTS,. BILATERAL STRABYSMUS X 4 Hx Anesthesia Reactions: No Infectious Disease History: No Infectious Disease History: Reports: Hx Shingles - 2004 Denies: Traveled Outside the [place] in Last 30 Days - Family History Known Family History: Negative: Blood Disorder - Social History Alcohol Use: Rare Hx Substance Use: Yes Substance Use Type: Reports: Marijuana Substance Use Comment - Amount & Last Used: ediables for pain control, 3-4 times /weekly Hx Tobacco Use: Yes Smoking Status (MU): Light Every Day Tobacco Smoker Amount Used/How Often: 3 cloves/ day Have You Smoked in the Last Year: Yes Review of Systems Negative: Fever, Chills Positive: Other - neck pain Negative: Chest Pain Negative: Shortness Of Breath Negative: Vomiting, Nausea All Other Systems Reviewed And Are Negative: Yes Physical Exam - Summary Physical Exam Summary: GENERAL: Patient is a well-developed and nourished female who is lying comfortable in the stretcher. Patient is not in any acute respiratory distress. HEAD AND FACE: Normocephalic EYES: PERRLA, EOMI x 2. EARS: Hearing grossly intact. MOUTH: Oropharynx within normal limits. NECK: Supple, trachea is midline, no adenopathy, no JVD, no carotid bruit. There is a surgical incision on the posterior midline of the neck which is clean and dry. There is some tenderness to palpation. CHEST: Symmetric, no tenderness at palpation LUNGS: Clear to auscultation bilaterally. No wheezing or crackles. CVS: Regular rate and rhythm, S1 and S2 present, no murmurs or gallops appreciated. ABDOMEN: Soft, non-tender. Bowel sounds are normal. No abnormal abdominal pulsations. EXTREMITIES: Full ROM in all major joints, no edema, no cyanosis or clubbing. NEURO: Alert and oriented x 3. No acute neurological deficits. SKIN: Dry and warm Triage Information Reviewed: Yes Vital Signs On Initial Exam: Initial Vitals Temp Pulse Resp BP Pulse Ox 98.3 F 107 20 131/93 97 09/09/18 12:54 09/09/18 12:54 09/09/18 12:54 09/09/18 12:54 09/09/18 12:54 Vital Signs Reviewed: Yes - Lucila Coma Scale Best Eye Response: 4 - Spontaneous Best Motor Response: 6 - Obeys Commands Best Verbal Response: 5 - Oriented Coma Scale Total: 15 Diagnostics - Vital Signs Vital Signs Temp Pulse Resp BP Pulse Ox 09/09/18 13:33 98 98 09/09/18 12:54 98.3 F 107 20 131/93 97 - Laboratory Lab Statement: Any lab studies that have been ordered have been reviewed, and results considered in the medical decision making process. - CT Brain CT CT Interpretation Completed By: Radiologist Summary of CT Findings: NO ACUTE INTRACRANIAL PATHOLOGY. IF THERE IS CLINICAL CONCERN FOR RECURRENT SAP GATHERER NEOPLASM, CONSIDER FURTHER EVALUATION WITH CONTRAST ENHANCED MRI OF THE BRAIN IN THE NONACUTE SETTING, AND COMPARISON TO PREVIOUS OUTSIDE IMAGING. ED physician has reviewed this report. C-spine CT CT Interpretation Completed By: Radiologist Summary of CT Findings: NO ACUTE OSSEOUS INJURY TO THE CERVICAL SPINE. NO OSSEOUS NEURAL FORAMINAL AREA OR CENTRAL CANAL STENOSIS. IF THERE IS CLINICAL CONCERN FOR RECURRENT SAP GATHERER NEOPLASM, RECOMMEND CONSIDERATION OF CONTRAST- ENHANCED MRI IN THE NONACUTE SETTING AND COMPARISON TO PREVIOUS IMAGING. ED physician has reviewed this report. Re-Evaluation - Re-Evaluation 1st re-eval Re-Evaluation Time: 15:09 Change: Improved Comment: I spoke with the patient and discussed the findings of the CT scans with her. I recommended an outpatient MRI, and she stated she will be getting one in two weeks, so I advised her to call her PCP to expedite the process. In the meantime, I will be giving her Benadryl, Toradol, and Reglan for her headache. Neck Course/Dx - Course Course Of Treatment: Pt is a 43 y/o F presenting to the ED with a chief complaint of neck pain described as pressure on her spine. She states it feels like when she first had her medulloblastoma, which has been surgically resected for about 15 years now. She has not had imaging done recently d/t her physicians thinking it has gone away. She has hx of ocular migraines as well as only being able to see out of one eye at a time d/t surgical complications. She denies fever, chills, N/V, CP, SOB, as well as hx of HTN, DM, HLD, or cardiac issues. Allergies include seafood, high doses of Zinc or ASA, Codeine, and Fentanyl. On exam, the pt has a surgical scar on her posterior midline neck , and there is some tenderness to palpation. Brain CT shows: NO ACUTE INTRACRANIAL PATHOLOGY. IF THERE IS CLINICAL CONCERN FOR RECURRENT SAP GATHERER NEOPLASM , CONSIDER FURTHER EVALUATION WITH CONTRAST ENHANCED MRI OF THE BRAIN IN THE NONACUTE SETTING, AND COMPARISON TO PREVIOUS OUTSIDE IMAGING. C-spine CT shows : NO ACUTE OSSEOUS INJURY TO THE CERVICAL SPINE. NO OSSEOUS NEURAL FORAMINAL AREA OR CENTRAL CANAL STENOSIS. IF THERE IS CLINICAL CONCERN FOR RECURRENT SAP GATHERER NEOPLASM, RECOMMEND CONSIDERATION OF CONTRAST-ENHANCED MRI IN THE NONACUTE SETTING AND COMPARISON TO PREVIOUS IMAGING. I spoke with the patient at 1509 and discussed the findings of the CT scans with her. I recommended an outpatient MRI, and she stated she will be getting one in two weeks, so I advised her to call her PCP to expedite the process. In the meantime, I will be giving her Benadryl, Toradol, and Reglan for her headache. I will be d/c'ing the pt with a dx of headache. I discussed results with patient, and she reports feeling better. She is hemodynamically stable and safe for discharge. Strict return precautions given and she will otherwise follow up with her PCP to expedite the pt's MRI. - Diagnoses Provider Diagnoses: Headache Discharge - Sign-Out/Discharge Documenting (check all that apply): Patient Departure Patient Received Moderate/Deep Sedation with Procedure: No - Discharge Plan Condition: Stable Disposition: HOME Prescriptions: diphenhydrAMINE HCl [Benadryl] 25 mg PO TID #20 capsule Metoclopramide TAB* [Reglan TAB*] 10 mg PO Q8H PRN #12 tab PRN Reason: Nausea Referrals: [facility] [Outside] Additional Instructions: Take your prescribed medications as instructed. Please call your primary care provider within the next day or two to move up your scheduled MRI. Return to the emergency department with any new or worsening symptoms. - Billing Disposition and Condition Condition: STABLE Disposition: Home - Attestation Statements Document Initiated by Savannahibe: Yes Documenting Scribe: Leidy Regalado Provider For Whom Sandra is Documenting (Include Credential): Gonzalez Coffey MD. Scribe Attestation: Leidy Rose, scribed for Gonzalez Coffey MD. on 09/09/18 at 2000. Scribe Documentation Reviewed: Yes Provider Attestation: The documentation as recorded by the Leidy marshall accurately reflects the service I personally performed and the decisions made by Nahed lovell MD. Status of Scribe Document: Viewed
[2018-09-09] MEDS ORDERED: diPHENhydraMINE IV* 50 MG/ML 1 ml VIAL (BENADRYL) IM ONE (15:11)
[2018-09-09] MEDS ORDERED: Metoclopramide TAB* 10 MG PO ONE (15:14)
[2018-09-09 15:35] VITALS: BP 109/84
== END 2018-09-09 15:45 | disposition home or self-care (01) ==
LOC: ED 12:47
DX: R51 Headache (principal); I95.9 Hypotension, unspecified; D64.9 Anemia, unspecified; D49.6 Neoplasm of unspecified behavior of brain; F41.9 Anxiety disorder, unspecified; F17.210 Nicotine dependence, cigarettes, uncomplicated; Z88.6 Allergy status to analgesic agent; Z88.8 Allergy status to other drugs, medicaments and biological substances; Z88.5 Allergy status to narcotic agent
CPT/HCPCS: 70450; 72125; 96372; 99282; A9270-GY; J1200

== ENCOUNTER 2019-03-05 11:50 | Emergency (ER) | payer MEDICARE ==
[2019-03-05 13:56] LABS: ABS Basophils 0.1 10^3/ul (0-0.2); ABS Eosinophils 0.2 10^3/ul (0-0.6); ABS Lymphocytes 1.2 10^3/ul (1.0-4.8); ABS Monocytes 0.4 10^3/ul (0-0.8); ABS Neutrophils 4.2 10^3/ul (1.5-7.7); Hematocrit 39 % (35-47); Hemoglobin 12.8 g/dL (12.0-16.0); Lymphocyte % 20.4 %; Mean Corpuscular HGB Conc 33 g/dL (31-36); Mean Corpuscular Hemoglobin 31 pg (27-31); Mean Corpuscular Volume 93 fL (80-97); Mean Platelet Volume 7.2 fL (7.4-10.4); Nucleated Red Blood Cells % 0.1; Platelet Count 227 10^3/uL (150-450); Red Blood Count 4.14 10^6 /uL (3.70-4.87); Red Cell Distribution Width 13 % (10-15); White Blood Count 6.1 10^3/uL (3.5-10.8)
--- NOTE | 2019-03-05 13:56 | ED ---
GI/ HPI - HPI Summary HPI Summary: This patient is a 43 year old F presenting to [facility] with a chief complaint of vaginal bleeding since this morning. Pt has a PMHx of uterine cysts (4 years ago ). At that time she experienced similar but slightly more severe symptoms and it required a DNC. She describes her bleeding as thick and flowing. Pt also has a PMHx of Brain tumor (2003) and she received radiation on head and spine, had chemo for 8 months. She also had 4 surgeries on eyes, advanced osteoporosis , fractured foot, fractured vertebrae, and anxiety attacks. Per triage, the patient rates the pain 5/10 in severity. Patient reports abdominal pain/ cramping. - History of Current Complaint Chief Complaint: EDVaginalBleeding Time Seen by Provider: 03/05/19 13:12 Stated Complaint: ABDOMINAL PAIN/VAGINAL BLEEDING PER PT Hx Obtained From: Patient Hx Last Menstrual Period: does not get period due to past radiation tx Onset/Duration: Started Hours Ago Timing: Constant Severity: Moderate Current Severity: Moderate Pain Intensity: 5 Location of Pain: Diffuse Associated Signs and Symptoms: Positive: Abdominal Pain Additional Signs & Symptoms: Positive: Vaginal Bleeding Aggravating Factor(s): Nothing Alleviating Factor(s): Nothing - Allergy/Home Medications Allergies/Adverse Reactions: Allergies Allergy/AdvReac Type Severity Reaction Status Date / Time shellfish derived Allergy Hives Verified 03/05/19 11:58 zinc Allergy Swelling Verified 03/05/19 11:58 Of Face,Lips,& Throat aspirin AdvReac Vomiting Verified 03/05/19 11:58 fentanyl AdvReac See Comment Verified 03/05/19 11:58 PMH/Surg Hx/FS Hx/Imm Hx Endocrine/Hematology History: Reports: Other Endocrine/Hematological Disorders - anemia Denies: Hx Anticoagulant Therapy, Hx Diabetes, Hx Sickle Cell Disease Cardiovascular History: Reports: Hx Hypotension Denies: Hx Hypertension, Hx Pacemaker/ICD Respiratory History: Denies: Hx Asthma, Hx Lung Cancer GI History: Denies: Hx Gastroesophageal Reflux Disease, Hx Ileostomy History: Denies: Hx Dialysis Musculoskeletal History: Reports: Other Musculoskeletal History - balance issues d/t brain tumor Sensory History: Reports: Hx Contacts or Glasses, Hx Vision Problem - right eye Denies: Hx Deafness, Hx Hearing Aid Opthamlomology History: Reports: Hx Contacts or Glasses, Hx Vision Problem - right eye Neurological History: Reports: Other Neuro Impairments/Disorders - medulloblastoma Denies: Hx CVA Psychiatric History: Reports: Hx Anxiety, Hx Panic Disorder - PANIC ATTACKS - Cancer History Cancer Type, 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 (DR. CARBALLO LOOKED AT PRIOR CT IMAGES 08/04 1350 HRS. OKAY TO SCAN SKULL SUTURES ONLY. VERBAL KDT 08/04/18 1350HRS) ,. TEETH REMOVED,. BONE GRAFTS AND IMPLANTS,. BILATERAL STRABYSMUS X 4 Hx Anesthesia Reactions: No Infectious Disease History: No Infectious Disease History: Reports: Hx Shingles - 2004 Denies: Traveled Outside the [place] in Last 30 Days - Family History Known Family History: Negative: Blood Disorder - Social History Alcohol Use: Rare Hx Substance Use: Yes Substance Use Type: Reports: Marijuana Substance Use Comment - Amount & Last Used: ediables for pain control, 3-4 times /weekly Hx Tobacco Use: Yes Smoking Status (MU): Light Every Day Tobacco Smoker Amount Used/How Often: 3 cloves/ day Have You Smoked in the Last Year: Yes Review of Systems Positive: Abdominal Pain Positive: other - vaginal bleeding All Other Systems Reviewed And Are Negative: Yes Physical Exam - Summary Physical Exam Summary: Constitutional: thin, Alert. (-) Distressed Skin: Warm, Dry HENT: Normocephalic; Atraumatic. Wearing protective R glasses lense. Eyes: Conjunctiva normal Neck: Musculoskeletal ROM normal neck. (-) JVD, (-) Stridor, (-) Nuchal rigidity Cardio: Rhythm regular, rate normal, Heart sounds normal; Intact distal pulses; Radial pulses are 2+ and symmetric. (-) Murmur Pulmonary/Chest wall: Effort normal. (-) Respiratory distress, (-) Wheezes, (-) Rales Abd: Soft, mild suprapubic tenderness, (-) Distension, (-) Guarding, (-) Rebound Musculoskeletal: (-) Edema Lymph: (-) Cervical adenopathy Neuro: Alert, Oriented x3, walks w cane. Psych: Mood and affect Normal Triage Information Reviewed: Yes Vital Signs On Initial Exam: Initial Vitals Temp Pulse Resp BP Pulse Ox 99.0 F 89 16 116/71 100 03/05/19 11:54 03/05/19 11:54 11/02/19 11:54 03/05/19 11:54 03/05/19 11:54 Vital Signs Reviewed: Yes Procedures - Sedation Patient Received Moderate/Deep Sedation with Procedure: No Diagnostics - Vital Signs Vital Signs Temp Pulse Resp BP Pulse Ox 03/05/19 11:54 99.0 F 89 16 116/71 100 - Laboratory Result Diagrams: 03/05/19 13:41 03/05/19 13:41 Lab Statement: Any lab studies that have been ordered have been reviewed, and results considered in the medical decision making process. - Ultrasound Pelvic US Ultrasound Interpretation Completed By: Radiologist Summary of Ultrasound Findings: Pelvic US reveals, per radiologist, REPORT AND IMPRESSION: #. 5.3 x 2.5 x 3.8 cm grossly unremarkable anteverted uterus. 0.5 cm endometrium. No. fluid evident within the endometrial cavity. #. Neither the RIGHT or LEFT ovary could be visualized with transabdominal technique. #. Negative for free pelvic fluid. ED physician has reviewed this radiology report. Re-Evaluation - Re-Evaluation First Eval Re-Evaluation Time: 14:54 Comment: Pt updated on US results and labs. Hb stable. Scant bleeding and declined pelvic exam. She will f/u w PEDIATRIC CLINICAL NURSE SPECIALIST GIGU Course/Dx - Course Course Of Treatment: 43 y/o F w hx DUB and uterine cyst p/w vaginal bleeding. - ddx includes DUB, (although has not had menses in many years), polyp , malignancy. - check labs, US, pelvic - Diagnoses Provider Diagnoses: Vaginal bleeding Discharge ED - Sign-Out/Discharge Documenting (check all that apply): Patient Departure - Discharge - Discharge Plan Condition: Stable Disposition: HOME Patient Education Materials: Dysfunctional Uterine Bleeding (ED) Referrals: Francesco Nobles MD [Medical Doctor] - 2 Days Additional Instructions: You were seen in the emergency department for vaginal bleeding. Your ultrasound did not show a cause for bleeding. Please follow up with SHREDDER/GRANULATOR OPERATOR. If any studies were not completed at the time of discharge you will be called with the relevant results. Please follow up with your primary care doctor in next 2-3 days and return to emergency department for worsening or concerning symptoms. It was a pleasure taking care of you today. - Billing Disposition and Condition Condition: STABLE Disposition: Home - Attestation Statements Document Initiated by Scribe: Yes Documenting Scribe: Griselda Smith Provider For Whom Scribe is Documenting (Include Credential): Hazel Patino MD Scribe Attestation: Griselda Rose, scribed for Hazel Patino MD on 03/05/19 at 2013. Scribe Documentation Reviewed: Yes Provider Attestation: The documentation as recorded by the [email or web address] accurately reflects the service I personally performed and the decisions made by Hazel lovell MD Status of Scribe Document: Viewed
[2019-03-05 14:14] LABS: ALT 16 U/L (7-52); AST 15 U/L (13-39); Albumin 4.1 g/dL (3.2-5.2); Albumin/Globulin Ratio 2.3 (1-3); Alkaline Phosphatase 61 U/L (34-104); Anion Gap 3 mmol/L (2-11); BUN/Creatinine Ratio 30.3 (8-20); Blood Urea Nitrogen 20 mg/dL (6-24); CO2 Carbon Dioxide 26 mmol/L (22-32); Calcium 9.1 mg/dL (8.6-10.3); Chloride 110 mmol/L (101-111); EGFR African American 117.7 (>60); EGFR Non-African American 97.3 (>60); Globulin 1.8 g/dL (2-4); Glucose 91 mg/dL (70-100); Potassium 3.8 mmol/L (3.5-5.0); Sodium 139 mmol/L (135-145); Total Protein 5.9 g/dL (6.4-8.9)
[2019-03-05 14:21] LABS: HCG Pregnancy < 0.60 mIU/mL
[2019-03-05 15:07] VITALS: BP 112/74
== END 2019-03-05 15:07 | disposition home or self-care (01) ==
LOC: ED 11:50
DX: N93.9 Abnormal uterine and vaginal bleeding, unspecified (principal); Z88.6 Allergy status to analgesic agent; Z88.5 Allergy status to narcotic agent; Z91.013 Allergy to seafood; F17.210 Nicotine dependence, cigarettes, uncomplicated
CPT/HCPCS: 36415; 76856; 80053; 84702; 85025; 99282